=== PATIENT | male | born 1970 | race African-American/Black ===

== ENCOUNTER 2016-11-23 22:22 | Emergency (ER) | payer OTHER ==
[~2016-11-23] VITALS: Ht 182.9 cm; Wt 111.0 kg
[~2016-11-23 22:22] MED LIST: ACET-3161; FAMO20TA96; HYDR-523; NORT10CA; P20
[2016-11-23 22:36] VITALS: BP 143/66
== END 2016-11-24 01:35 | disposition left against medical advice (07) ==
LOC: ER 22:23
DX: R11.2 Nausea with vomiting, unspecified (principal); Z53.21 Procedure and treatment not carried out due to patient leaving prior to being seen by health care provider